=== PATIENT | male | born 1940 | race Caucasian/White ===

== ENCOUNTER 2020-03-21 11:26 | Emergency (ER) | payer MEDICARE, OTHER ==
[2020-03-21] MEDS ORDERED: BUFFERED LIDOCAINE 10 ML SYRINGE SUBQ STA (12:39)
--- NOTE | 2020-03-21 13:05 | ED Physician Documentation ---
PD HPI UPPER EXT INJURY - Stated complaint Stated Complaint: LT HAND LAC - Chief complaint Chief Complaint: Laceration - History obtained from History obtained from: Patient - History of Present Illness Location: Left, Hand Type of injury: Laceration Where injury occurred: Home Timing - onset: How many hours ago (2) - Additonal information Additional information: 79-year-old right-handed male presents to the emergency department with an approximately 1-1/2 cm laceration at the base of his left thumb just above the thenar eminence. This occurred at home when he was using a crate bar. 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 Bleeding is controlled with pressure. No deformity. He reports tetanus is being up-to-date. Review of Systems Constitutional: denies: Fever Ears: denies: Loss of hearing Throat: denies: Dental pain / toothache, Oral lesions / sores Cardiac: denies: Chest pain / pressure, Palpitations Respiratory: denies: Dyspnea GI: denies: Abdominal Pain, Abdominal Swelling : denies: Dysuria Skin: reports: Laceration (s) (1.5 cm base of left thumb palmar side above thenar eminence). denies: Rash, Lesions PD PAST MEDICAL HISTORY - Past Medical History Past Medical History: Yes Cardiovascular: Hypertension - Past Surgical History Past Surgical History: Yes Ortho: Knee replacement, Rotator cuff repair - Allergies Allergies/Adverse Reactions: Allergies Allergy/AdvReac Type Severity Reaction Status Date / Time No Known Drug Allergies Allergy Verified 03/21/20 11:53 - Social History Does the pt smoke?: No Smoking Status: Never smoker Does the pt drink ETOH?: No Does the pt have substance abuse?: No - Immunizations Immunizations are current?: Yes - POLST Patient has POLST: No PD ED PE NORMAL - General General: Alert and oriented X 3, No acute distress - Derm Derm: Other (1.5 cm laceration palmar side left hand base of thumb above thenar eminence. Patient able to make a full grasp with left hand abduct and adduct thumb normally. No deformity) Results - Vitals Vitals: Vital Signs - 24 hr 03/21/20 11:50 Temperature 36.0 C L Heart Rate 65 Respiratory 18 Rate Blood Pressure 131/55 H O2 Saturation 99 Oxygen O2 Source Room air Procedures - Laceration (location) left hand Length in cm: 2 Wound type: Linear Neurovascular status: Sensory intact, Motor intact, Vascular intact Tendon involvement: Tendon intact Anesthesia: Lidocaine 1% Wound Preparation: Chlorhexadine, Irrigated copiously NS Skin layer closure: Size #-0 - enter number (4), Sutures - enter # (5) Other: Patient tolerated well, No complications, Neurovascular intact, Dressing applied, Tetanus UTD Complexity: Simple PD MEDICAL DECISION MAKING - ED course Complexity details: reviewed results, d/w patient, d/w family ED course: 79-year-old male presents to the emergency department for evaluation of a left hand laceration that occurred at home when using a crowbar. The laceration was closed easily with 5 sutures. No concern for foreign body tendon involvement or hand fracture. Patient advised that sutures can be removed in 7 to 10 days. Routine wound care and return for concerns of infection discussed. Patient's tetanus is up-to-date Departure - Departure Disposition: 01 Home, Self Care Clinical Impression: Laceration of hand Qualifiers: Encounter type: initial encounter Foreign body presence: without foreign body Laterality: left Qualified Code(s): S61.412A - Laceration without foreign body of left hand, initial encounter Condition: Stable Instructions: ED Laceration Hand Follow-Up: Seymour Goldberg MD [Primary Care Provider] - Within 1 week Comments: The laceration of your hand should heal well. Sutures can be removed in 7 to 10 days. 24 hours you may remove your dressing in January. Apply any antibiotic ointment and a simple bandage. It is important that you minimize movement of the left hand and thumb to allow the tissue time to heal. Return here for fevers, redness swelling milky drainage or any concerns of infection.
[2020-03-21 13:16] VITALS: BP 137/66
== END 2020-03-21 13:17 | disposition home or self-care (01) ==
LOC: ED 11:26
DX: S61.412A Laceration without foreign body of left hand, initial encounter (principal); W27.8XXA Contact with other nonpowered hand tool, initial encounter; Y92.009 Unspecified place in unspecified non-institutional (private) residence as the place of occurrence of the external cause
CPT/HCPCS: 12001; 99282; 99283

== ENCOUNTER 2022-02-06 09:01 | Outpatient (CLI) | payer MEDICARE, OTHER ==
--- NOTE | 2022-02-06 09:52 | CT Report ---
PROCEDURE: Sinuses INDICATIONS: RECURRENT SINUSITIS TECHNIQUE: Noncontrast 3.0 mm axial images acquired from the frontal sinuses to the mid-sella, with coronal and sagittal reformats. For radiation dose reduction, the following was used: automated exposure control , adjustment of mA and/or kV according to patient size. COMPARISON: None. FINDINGS: Image quality: Excellent. Maxillary Sinuses: No bony remodeling or destruction. Mild mucosal thickening of the right maxillary sinus anteriorly measuring up to 3 mm. Ethmoid Air Cells: No bony remodeling or destruction. Sinuses are clear. Sphenoid Sinuses: No bony remodeling or destruction. Sinuses are clear. Frontal Sinuses: No bony remodeling or destruction. Sinuses are clear. Ostiomeatal Complexes: Ostiomeatal complexes are patent. Small Hilario cell on the left. Miscellaneous: Visualized intra-orbital contents are normal. No dexter bullosa. No nasal septal de viation. IMPRESSION: Mild mucosal thickening of the right anterior maxillary sinus, otherwise no significant s inusitis. Reviewed by: Cornelio Faith on 02/06/2022 9:50 AM PDT Approved by: Cornelio Faith on 02/06/2022 9:50 AM PDT Station ID: [id number]
== END 2022-02-06 09:02 | disposition home or self-care (01) ==
LOC: DI 09:01
PROVIDERS: ATTEND Family Medicine
DX: J01.91 Acute recurrent sinusitis, unspecified (principal)

== ENCOUNTER 2022-02-14 08:00 | Outpatient (CLI) | payer MEDICARE, OTHER ==
[2022-02-14 15:27] LABS: BILIRUBIN,URINE NEGATIVE (NEGATIVE); GLUCOSE, URINE (UA) NEGATIVE (NEGATIVE); KETONES,URINE (UA) NEGATIVE (NEGATIVE); LEUKOCYTE ESTERASE, URINE NEGATIVE (NEGATIVE); NITRITE,URINE NEGATIVE (NEGATIVE); OCCULT BLOOD,URINE NEGATIVE (NEGATIVE); PROTEIN,URINE NEGATIVE (NEGATIVE); UROBILINOGEN,URINE 0.2 (NORMAL) E.U./dL (NORMAL)
[2022-02-14 15:41] LABS: CLARITY,URINE CLEAR (CLEAR)
[2022-02-14 16:54] LABS: BACTERIA,URINE Few /HPF (None Seen); RBC,URINE None Seen /HPF (0-5); SQUAMOUS EPITHELIAL CELL,UR RARE Squamous (<= Few); WBC,URINE 0-3 /HPF (0-3)
== END 2022-02-14 23:59 | disposition home or self-care (01) ==
LOC: LAB 08:00
PROVIDERS: ATTEND Emergency Medicine
DX: R53.83 Other fatigue (principal)
CPT/HCPCS: 81001; 87086

== ENCOUNTER 2022-02-14 13:02 | Outpatient (CLI) | payer MEDICARE, OTHER ==
[2022-02-14 19:58] LABS: BASOPHILS % (AUTO) 0.2 %; EOSINOPHILS # (AUTO) 0.2 10^3/uL (0.0-0.7); EOSINOPHILS % (AUTO) 1.7 %; HCT - HEMATOCRIT 36.2 % (42.0-52.0); HGB - HEMOGLOBIN 12.2 g/dL (14.0-18.0); LYMPHOCYTES # (AUTO) 1.7 10^3/uL (1.5-3.5); LYMPHOCYTES % (AUTO) 18.8 %; MEAN CORPUSCULAR HEMOGLOBIN 31.2 pg (27.0-31.0); MEAN CORPUSCULAR HGB CONC 33.7 g/dL (32.0-36.0); MEAN CORPUSCULAR VOLUME 92.6 fL (80.0-94.0); MEAN PLATELET VOLUME 11.9 fL (7.4-11.4); MONOCYTES % (AUTO) 10.4 %; NEUTROPHILS # (AUTO) 6.3 10^3/uL (1.5-6.6); NEUTROPHILS % (AUTO) 68.2 %; PLT - PLATELET COUNT 133 10^3/uL (130-450); RED BLOOD COUNT 3.91 10^6/uL (4.70-6.10); RED CELL DISTRIBUTION WIDTH 15.3 % (12.0-15.0); WHITE BLOOD COUNT 9.2 x10^3/uL (4.8-10.8)
[2022-02-14 20:04] LABS: ALBUMIN/GLOBULIN RATIO 1.4 (1.0-2.2); BILIRUBIN,TOTAL 0.9 mg/dL (0.2-1.0); CALCIUM 8.9 mg/dL (8.5-10.3); CREATININE 0.9 mg/dL (0.6-1.2); POTASSIUM 4.5 mmol/L (3.5-5.0); TOTAL PROTEIN 6.8 g/dL (6.7-8.2)
[2022-02-14 20:35] LABS: THYROID STIMULATING HORMONE 4.48 uIU/mL (0.34-5.60)
== END 2022-02-14 13:03 | disposition home or self-care (01) ==
LOC: LAB.S 13:02
PROVIDERS: ATTEND Emergency Medicine
DX: R53.83 Other fatigue (principal); Z12.5 Encounter for screening for malignant neoplasm of prostate
CPT/HCPCS: 36415; 80053; 84443; 85025; G0103; 84153

== ENCOUNTER 2023-04-03 14:13 | Outpatient (CLI) | payer MEDICARE, OTHER | END 2023-04-03 14:14 | disposition critical access hospital (66) | LOC: EMS 14:13 | DX: R06.02 Shortness of breath (principal) | CPT/HCPCS: A0425; A0427 ==

== ENCOUNTER 2023-04-03 14:55 | Inpatient (IN) | payer MEDICARE, OTHER ==
--- NOTE | 2023-04-03 15:05 | ED Physician Documentation ---
PD HPI DYSPNEA - Stated complaint Stated Complaint: SOA - History obtained from History obtained from: Patient - Additional information Additional information: 82-year-old gentleman with "pulmonary calcifications" for which he sees a pump house technician at [facility]. Over the last few weeks he is slowly been getting worse with breathing with a productive cough with yellow-green sputum and worsening shortness of breath with increased oxygen requirement with his oxygen going from 4 up to 5, up to 6 L. He has been seen a couple times the [place] and he has had 2 rounds of Augmentin and prednisone, the first starting on the eighth of this month and the second starting 4 days ago. Despite this he continues to worsen. He denies fevers. No pedal edema or calf pain. No chest pain or heart problems. EMS notes his pulse oximetry while walking at home was 75% on his 6 L. From EMS prior to arrival he received a DuoNeb which did not do anything to help him he thinks, and 125 mg of IV Solu-Medrol. PD PAST MEDICAL HISTORY - Past Medical History Cardiovascular: Hypertension - Past Surgical History Past Surgical History: Yes Ortho: Knee replacement, Rotator cuff repair - Allergies Allergies/Adverse Reactions: Allergies Allergy/AdvReac Type Severity Reaction Status Date / Time No Known Drug Allergies Allergy Verified 04/03/23 15:09 - Social History Does the pt smoke?: No Smoking Status: Never smoker Does the pt drink ETOH?: No Does the pt have substance abuse?: No - Immunizations Immunizations are current?: Yes - POLST Patient has POLST: No PD ED PE NORMAL - Vitals Vital signs reviewed: Yes - General General: Alert and oriented X 3, Other (Modestly labored breathing but speaking in full short sentences) - Neck Neck: Supple, no meningeal sign, No bony TTP - Cardiac Cardiac: RRR, No murmur - Respiratory Respiratory: Other (Labored breathing with actually pretty good air motion, mild crackles throughout and mild expiratory wheezes.) - Abdomen Abdomen: Non tender - Extremities Extremities: No edema, No calf tenderness / cord - Neuro Neuro: Alert and oriented X 3, Normal speech Results - Vitals Vitals: Vital Signs - 24 hr 04/03/23 04/03/23 04/03/23 14:56 16:33 17:00 Temperature 37.6 C 36.7 C Heart Rate 95 94 80 Respiratory 27 H 20 20 Rate Blood Pressure 131/81 H 109/53 L 107/82 H O2 Saturation 89 L 90 L 92 If not protocol 6 6 : Oxygen Flow, liters/minute 04/03/23 04/03/23 18:00 18:30 Temperature 36.4 C L Heart Rate 79 88 Respiratory 20 20 Rate Blood Pressure 127/82 H 134/91 H O2 Saturation 94 92 If not protocol 6 6 : Oxygen Flow, liters/minute Oxygen O2 Source Nasal cannula Oxygen Flow Rate 6 - EKG (time done) 1514 EKG releavant findings:: EKG personally interpreted by author of this note. Relevant findings are: Rate: Rate (enter#) (88) Rhythm: NSR [place]: Normal Intervals: Normal AR QRS: Normal Ischemia: Non specific changes. No: ST elevation c/w ischemia, ST depression, T wave inversion Computer interpretation: Agree with computer - Labs Labs: Laboratory Tests 04/03/23 04/03/23 04/03/23 15:18 15:22 15:22 WBC 11.6 H RBC 3.76 L Hgb 11.7 L Hct 33.4 L MCV 88.8 MCH 31.1 H MCHC 35.0 RDW 16.0 H Plt Count 104 L MPV 11.7 H Neut # (Auto) 9.6 H Lymph # (Auto) 1.0 L Conway # (Auto) 0.9 Eos # (Auto) 0.0 Baso # (Auto) 0.0 Absolute Nucleated RBC 0.00 Nucleated RBC % 0.0 VBG pH VBG pCO2 VBG pO2 VBG HCO3 VBG Total CO2 VBG O2 Saturation VBG Base Excess Sodium 127 L Potassium 4.0 Chloride 96 L Carbon Dioxide 24 Anion Gap 7.0 BUN 16 Creatinine 1.0 Estimated GFR (MDRD) 72 L Glucose 132 H Lactic Acid Calcium 8.9 Phosphorus 3.8 Magnesium 1.6 L Total Bilirubin 1.1 H AST 21 ALT 13 Alkaline Phosphatase 58 Total Protein 6.8 Albumin 3.8 Globulin 3.0 Albumin/Globulin Ratio 1.3 Nasal Adenovirus (PCR) NOT DETECTED Nasal B. parapertussis DNA (PCR) NOT DETECTED Nasal Coronavir 229E PCR NOT DETECTED Nasal Coronavir HKU1 PCR NOT DETECTED Nasal Coronavir NL63 PCR NOT DETECTED Nasal Coronavir OC43 PCR NOT DETECTED Nasal Enterovir/Rhinovir PCR NOT DETECTED Nasal Influenza B PCR NOT DETECTED Nasal Influenza A PCR NOT DETECTED Nasal Parainfluen 1 PCR NOT DETECTED Nasal Parainfluen 2 PCR NOT DETECTED Nasal Parainfluen 3 PCR NOT DETECTED Nasal Parainfluen 4 PCR NOT DETECTED Nasal RSV (PCR) NOT DETECTED Nasal B.pertussis DNA PCR NOT DETECTED Nasal C.pneumoniae (PCR) NOT DETECTED Shiv Human Metapneumo PCR NOT DETECTED Nasal M.pneumoniae (PCR) NOT DETECTED Nasal SARS-CoV-2 (PCR) NOT DETECTED 04/03/23 04/03/23 15:22 15:22 WBC RBC Hgb Hct MCV MCH MCHC RDW Plt Count MPV Neut # (Auto) Lymph # (Auto) Conway # (Auto) Eos # (Auto) Baso # (Auto) Absolute Nucleated RBC Nucleated RBC % VBG pH 7.449 H VBG pCO2 32.1 L VBG pO2 68.9 H VBG HCO3 21.8 L VBG Total CO2 22.7 L VBG O2 Saturation 92.8 H VBG Base Excess -1.5 Sodium Potassium Chloride Carbon Dioxide Anion Gap BUN Creatinine Estimated GFR (MDRD) Glucose Lactic Acid 1.2 Calcium Phosphorus Magnesium Total Bilirubin AST ALT Alkaline Phosphatase Total Protein Albumin Globulin Albumin/Globulin Ratio Nasal Adenovirus (PCR) Nasal B. parapertussis DNA (PCR) Nasal Coronavir 229E PCR Nasal Coronavir HKU1 PCR Nasal Coronavir NL63 PCR Nasal Coronavir OC43 PCR Nasal Enterovir/Rhinovir PCR Nasal Influenza B PCR Nasal Influenza A PCR Nasal Parainfluen 1 PCR Nasal Parainfluen 2 PCR Nasal Parainfluen 3 PCR Nasal Parainfluen 4 PCR Nasal RSV (PCR) Nasal B.pertussis DNA PCR Nasal C.pneumoniae (PCR) Shiv Human Metapneumo PCR Nasal M.pneumoniae (PCR) Nasal SARS-CoV-2 (PCR) PD Medical Decision Making - ED course ED course: 82-year-old gentleman with chronic lung disease presents with acute on chronic respiratory failure. Has a white count of 11, slight hyperventilation on venous gas, modest hyponatremia on metabolic panel, chronic, respiratory panel negative. 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 Placed on ceftriaxone and azithromycin and already had steroids prior to arrival. Given his worsening will need admission for further evaluation and treatment. Decision to admit made at 6:26 PM, will have to hold for hospitalist shift change at 7. Spoke with Dr Wolff at 1911, who declines admit, feels like he should go somewhere with pulmonology and bronch capability, call to [facility] where his pulm is at 1911. Spoke with Dr Krishna Fletcher, pulmonary at [facility] a 8:39. He viewed the CT images and feels the fibrosis is similar. Does feel there is likely infectious groundglass opacity in R lung. Agreed with admit here w 1g solumedrol qd x 3 days. No role for inpatient bronchoscopy as he is not immunocompromised. Does recommend sputum cx and agrees with tx for CAP. Subsequently spoke with Dr. Wolff again and he will admit the patient. Departure - Departure Disposition: [facility] DC/[place] Clinical Impression: Respiratory failure Discharge Date/Time: 04/03/23 21:49
[2023-04-03 15:38] LABS: VBG HCO3 21.8 mmol/L (23-28); VBG PCO2 32.1 mmHg (41-51); VBG PH 7.449 (7.31-7.41); VBG PO2 68.9 mmHg (25-47); VBG TOTAL CO2 22.7 mmol/L (24-29)
[2023-04-03 15:39] LABS: VBG BASE EXCESS -1.5 mmol/L (-2 - +2); VBG OXYGEN SATURATION 92.8 % (60-80)
[2023-04-03 15:42] LABS: BASOPHILS % (AUTO) 0.3 %; EOSINOPHILS % (AUTO) 0.3 %; HCT - HEMATOCRIT 33.4 % (42.0-52.0); HGB - HEMOGLOBIN 11.7 g/dL (14.0-18.0); LYMPHOCYTES % (AUTO) 8.3 %; MEAN CORPUSCULAR HEMOGLOBIN 31.1 pg (27.0-31.0); MEAN CORPUSCULAR VOLUME 88.8 fL (80.0-94.0); MEAN PLATELET VOLUME 11.7 fL (7.4-11.4); MONOCYTES # (AUTO) 0.9 10^3/uL (0.0-1.0); MONOCYTES % (AUTO) 7.6 %; NEUTROPHILS # (AUTO) 9.6 10^3/uL (1.5-6.6); NEUTROPHILS % (AUTO) 82.6 %; PLT - PLATELET COUNT 104 10^3/uL (130-450); RED BLOOD COUNT 3.76 10^6/uL (4.70-6.10); WHITE BLOOD COUNT 11.6 x10^3/uL (4.8-10.8)
[2023-04-03 15:52] LABS: ALBUMIN 3.8 g/dL (3.2-5.5); ALBUMIN/GLOBULIN RATIO 1.3 (1.0-2.2); BILIRUBIN,TOTAL 1.1 mg/dL (0.2-1.0); CALCIUM 8.9 mg/dL (8.5-10.3); MAGNESIUM 1.6 mg/dL (1.7-2.3); PHOSPHORUS 3.8 mg/dL (2.5-5.0); TOTAL PROTEIN 6.8 g/dL (6.4-8.9)
[2023-04-03 16:30] LABS: B. PARAPERTUSSIS- RESP PCR PAN NOT DETECTED; B. PERTUSSIS- RESP PCR PANEL NOT DETECTED; C. PNEUMONIAE- RESP PCR PANEL NOT DETECTED; CORONAVIRUS 229E-RESP PCR NOT DETECTED; CORONAVIRUS HKU1-RESP PCR NOT DETECTED; CORONAVIRUS NL63-RESP PCR NOT DETECTED; CORONAVIRUS OC43-RESP PCR NOT DETECTED; HUMAN METAPNEUMOVIRUS NOT DETECTED; INFLUENZA A- RESP PCR PANEL NOT DETECTED; INFLUENZA B - RESP PCR PANEL NOT DETECTED; M. PNEUMONIAE- RESP PCR PANEL NOT DETECTED; PARAINFLUENZA VIRUS 1 NOT DETECTED; PARAINFLUENZA VIRUS 2 NOT DETECTED; PARAINFLUENZA VIRUS 3 NOT DETECTED; PARAINFLUENZA VIRUS 4 NOT DETECTED; RHINOVIRUS/ENTEROVIRUS NOT DETECTED; RSV- RESP PCR PANEL NOT DETECTED; SARS-CoV-2 -RESP PCR PANEL NOT DETECTED
--- NOTE | 2023-04-03 18:15 | CT Report ---
PROCEDURE: ANGIO CHEST W/WO INDICATIONS: dyspnea, pe protocol CONTRAST: 100ml omni 300 TECHNIQUE: After the administration of intravenous contrast, 2 mm axial images were acquired from the pulmonary apices to the posterior costophrenic angles during the arterial phase. In addition, 1 mm lung kernel and 5 mm soft tissue kernel reconstructions were performed. 3-dimensional coronal oblique maximum int ensity projection (MIP) reformats, 8 mm axial MIP, and 5 mm coronal and sagittal MPR reformats were t hen performed through the thorax. For radiation dose reduction, the following was used: automated exp osure control, adjustment of mA and/or kV according to patient size. COMPARISON: None FINDINGS: Image quality: Good Lungs and pleura:Mosaic attenuation. Honeycombing most confluent at the bases. Possible additional gr oundglass opacities. Traction bronchiectasis. No pleural effusions. Mediastinum, heart, and esophagus: No pulmonary embolism. Patulous esophagus, nonspecific. There are valvular and annular calcifications around the heart. Coronary calcifications also present. Prominent medial sagittal hilar lymph nodes may be reactive in this clinical setting, indeterminate. Mildly dilated pulmonary artery suggestive of high pulmonary pressures. Chest wall and thyroid: Unremarkable. Upper abdomen: No gross abnormality on these arterial phase images. Bones: Degenerative changes are present, no acute or suspicious finding. IMPRESSION: No acute pulmonary embolism. 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 There is additional mosaic attenuation suggesting c hronic small airways disease/chronic bronchiolitis. There may also be infectious/inflammatory groundg lass opacities. Consider future follow-up with high-resolution chest CT and PFTs. Reviewed by: Tien Wilson MD on 04/03/2023 6:13 PM PDT Approved by: Tien Wilson MD on 04/03/2023 6:13 PM PDT Station ID: [id number]
[2023-04-03] MEDS ORDERED: cefTRIAXone 1 GM VIAL IVP STA (18:26)
[2023-04-03] MEDS ORDERED: AZITHROMYCIN INJ 500 MG in SODIUM CHLORIDE 0.9% 250 ML IV STA (18:26)
[2023-04-03] MEDS ORDERED: iohexoL-300 100 ML VIAL IVP ONE (19:06)
[2023-04-03] MEDS ORDERED: methylPREDNISolone SUCCINATE 1,000 MG in SODIUM CHLORIDE 0.9% 250 ML IV STA (20:42)
[2023-04-03] MEDS ORDERED: ONDANSETRON 4 MG/2 ML VIAL IVP PRN (20:50)
[2023-04-03] MEDS ORDERED: SODIUM CHLORIDE FLUSH 0.9% 10 ML SYRINGE IVP PRN (20:50)
[2023-04-03] MEDS ORDERED: HYDROcod/ACETAM 5/325 MG TABLET PO PRN (20:50)
[2023-04-03] MEDS ORDERED: ACETAMINOPHEN 325 MG TABLET PO PRN (20:50)
[2023-04-03] MEDS ORDERED: MAGNESIUM SULFATE 1 GM/2 ML VIAL IVP STA (20:56)
--- NOTE | 2023-04-03 21:06 | HISTORY & PHYSICAL EXAMINATION ---
Chief Complaint - Chief Complaint Chief Complaint: SOB History of Present Illness - Admitted From Admitted From:: Home - History Obtained From Records Reviewed: Yes History obtained from: Patient and ER team Exam Limitations: None - History of Present Illness HPI Comment/Other: 82-year-old gentleman with "pulmonary calcifications" for which he sees a effervescent salts compounder at [facility]. Over the last few weeks he is slowly been getting worse with breathing with a productive cough with yellow-green s putum and worsening shortness of breath with increased oxygen requirement with his oxygen going from 4 up to 5, up to 6 L. He has been seen a couple times the [place] and he has had 2 rounds of Augmentin and prednisone, the first starting on the eighth of this month and the second starting 4 days ago. Despite this he continues to worsen. He denies fevers. No pedal edema or calf pain. No chest pain or heart problems. EMS notes his pulse oximetry while walking at home was 75% on his 6 L. From EMS prior to arrival he received a DuoNeb which did not do anything to help him he thinks, and 125 mg of IV Solu-Medrol. Pateint discussed with Dr Gomez, patient may need high dose steroids and may need bronch so asked him to speak with his primary pulmonary, who reviewed images and felt patient is ok to be admitted at [facility] and recommneded abx and high dose siolumedrol x 3 days Patient is retired lives with is a full code Used to work in construction History - Past Medical History Cardiovascular: reports: Hypertension MRSA Hx?: No - Past Surgical History Ortho: reports: Knee replacement, Rotator cuff repair - POLST Patient has POLST: No Meds/Allgy - Allergies Allergies/Adverse Reactions: Allergies Allergy/AdvReac Type Severity Reaction Status Date / Time No Known Drug Allergies Allergy Verified 04/03/23 15:09 Review of Systems - Respiratory Respiratory: reports: Cough, SOB with exertion Prior Level of Functionality: Oxygen dependnet at home Exam - Vital Signs Vital Signs: Vital Signs x48h Temp Pulse Resp BP Pulse Ox O2 Flow Rate 04/03/23 18:30 88 20 134/91 H 92 6 04/03/23 18:00 36.4 C L 79 20 127/82 H 94 6 04/03/23 17:00 80 20 107/82 H 92 6 04/03/23 16:33 36.7 C 94 20 109/53 L 90 L 6 04/03/23 14:56 37.6 C 95 27 H 131/81 H 89 L - Physical Exam General Appearance: positive: Mild distress Eyes Bilateral: positive: Normal inspection Neck: positive: Thyroid nml, No JVD Respiratory: positive: Rales (Mild respiratory ditress), Rhonchi Cardiovascular: positive: Regular rate & rhythm Abdomen: positive: No organomegaly, Nml bowel sounds Back: positive: Nml inspection Skin: positive: Color nml, No rash Extremities: positive: Non-tender, Full ROM Neurologic/Psychiatric: positive: Oriented x3, CN's nml (2-12) Sepsis Event Note (H) - Evaluation Current Stage of Sepsis: Ruled out Conclusion/Plan - Problem List (1) COPD (chronic obstructive pulmonary disease) with acute bronchitis Conclusion/Plan: Admit to med surg Magnesium to be replaced Duonebs Send sputum cultures and sensitivity Empiric abx Supplemental Oxygen RT to see patient High dose steroids x 3 days (2) ILD (interstitial lung disease) Conclusion/Plan: High dose steroids DVT prophylaxis Will stayf for 3-5 days Patient informed that I am based in [place] and this is telemedicine visit and he gave his approval for the vist - Lab Results Fish Bones: 04/03/23 15:22 04/03/23 15:22 - Diagnostic Imaging Results Diagnostic Imaging Results: positive: Prelim report reviewed - EKG Results EKG Interpreted Independently: No
[2023-04-03] MEDS ORDERED: MAGNESIUM SULFATE 1 GM/2 ML VIAL ONE (22:58)
[2023-04-03] MEDS ORDERED: SODIUM CHLORIDE 0.9% IV ONE (23:00)
[2023-04-03] MEDS ORDERED: MAGNESIUM SULFATE IV ONE (23:00)
[2023-04-03] MEDS: SODIUM CHLORIDE 0.9% 1,000 ML IV SCH (23:19)
[2023-04-03] MEDS: SODIUM CHLORIDE FLUSH 0.9% 10 ML SYRINGE IVP SCH (23:30)
[2023-04-03] MEDS: methylPREDNISolone SUCCINATE 1,000 MG in SODIUM CHLORIDE 0.9% 250 ML IV SCH (23:31)
[2023-04-04] MEDS ORDERED: cefTRIAXone 1 GM in SODIUM CHLORIDE 0.9% MINIBAG 100 ML IV ONE (06:00)
[2023-04-04] MEDS: SODIUM CHLORIDE FLUSH 0.9% 10 ML SYRINGE IVP SCH ×3 (08:47→23:15)
[2023-04-04] MEDS: methylPREDNISolone SUCCINATE 1,000 MG in SODIUM CHLORIDE 0.9% 250 ML IV SCH (09:13)
--- NOTE | 2023-04-04 11:19 | PHARMACY PROGRESS NOTE ---
- Best Possible Medication History Admit Date and Time: 04/03/232050 Processed by: Pharmacy Medication History completed: Yes Patient Interview: Completed Secondary Source(s): Written medication list, Prescription bottles, Spouse/Significant other As the person ultimately responsible for medication therapy, providers are able to order a medication from an existing home medication list in [facility] via the "Reconcile Routine" prior to Confirmation of that medication by desktop support consultant. Such practice is discouraged except when the physician, in their clinical judgment, deems that a medical need exists for a medication without regard to previous use. Conducted patient interview with assistance from spouse.
[2023-04-04] MEDS ORDERED: BENZONATATE 100 MG CAPSULE PO PRN (12:12)
[2023-04-04] MEDS: SODIUM CHLORIDE 0.9% 1,000 ML IV SCH ×2 (12:15→20:54)
[2023-04-04] MEDS: guaiFENesin/DEXTROMETHORPHAN 10 ML UDC PO PRN ×2 (12:25→20:58)
--- NOTE | 2023-04-04 12:27 | PROVIDER PROGRESS NOTE ---
Assessment/Plan - Problem List (1) Acute on chronic respiratory failure Qualifiers: Respiratory failure complication: hypoxia Qualified Code(s): J96.21 - Acute and chronic respiratory failure with hypoxia Assessment/Plan: * Patient with known history of interstitial lung disease followed by [facility] pulmonology, chronically on oxygen at home with baseline 4 L * Admitted with progressive shortness of breath not responding to 2 rounds of oral Augmentin in the last 10 days * Presented to the ED with no clear evidence of infection, COVID-negative, no clear consolidation on chest x-ray suggestive of community-acquired pneumonia * Admitted on high-dose IV steroids at the recommendation of his negative cleaner who was contacted by ED attending * Has made some improvements clinically but fluctuating levels of oxygen requirements as low as 6 L and as high as 7 L by oxy mask this morning * Continue to provide supportive care with IV Solu-Medrol and oxygen to wean to baseline as able * Given history of interstitial lung disease will cover atypicals with 3 days of azithromycin * Given lack of focal consolidation, leukocytosis on admission, or fevers, will defer further antibiotics for now * Pending clinical course, broaden antibiotics as needed (2) ILD (interstitial lung disease) Assessment/Plan: Treatment as above (3) HTN (hypertension) Assessment/Plan: BP stable Monitor (4) GERD (gastroesophageal reflux disease) Assessment/Plan: Protonix p.o. - Current Meds Current Meds: Current Medications Generic Name Dose Route Start Last Admin Trade Name Freq PRN Reason Stop Dose Admin Sodium Chloride 1,000 mls @ 100 mls/hr 04/03/23 21:00 04/04/23 12:15 Normal Saline 0.9% IV 100 mls/hr .Q10H KNEYA Administration Methylprednisolone Sodium 250 mls @ 250 mls/hr 04/03/23 21:00 04/04/23 10:14 Succinate 1,000 mg/ Sodium IV 04/06/23 06:00 Infused Chloride DAILY KENYA Infusion Sodium Chloride 10 ml 04/04/23 01:00 04/04/23 08:47 Sodium Chloride Flush 0.9% 10 Ml Syringe IVP Not Given 0100,0900,1700 KENYA - Lab Result Lab results reviewed: Yes Fish Bone Diagrams: 04/03/23 15:22 04/03/23 15:22 - Additional Planning My Orders: My Active Orders 04/04/23 12:12 Benzonatate [Tessalon] 100 mg PO TID PRN guaiFENesin/DEXTROMETHORPHAN [Robitussin Dm] 10 ml PO Q6HR PRN 04/04/23 12:24 Benzonatate [Tessalon] 200 mg PO TID PRN 04/05/23 05:00 BMP - BASIC METABOLIC PANEL [CHEM] DAILYLAB CBC W/O DIFF (HEMOGRAM) [HEME] DAILYLAB 04/05/23 08:00 Magnesium Oxide [Mag Ox] 400 mg PO DAILYWM 04/06/23 05:00 BMP - BASIC METABOLIC PANEL [CHEM] DAILYLAB CBC W/O DIFF (HEMOGRAM) [HEME] DAILYLAB 04/07/23 05:00 BMP - BASIC METABOLIC PANEL [CHEM] DAILYLAB CBC W/O DIFF (HEMOGRAM) [HEME] DAILYLAB Subjective - Subjective Patient Reports: Feeling Better Objective Vital Signs: Vital Signs - 24 hr 04/03/23 04/03/23 04/03/23 14:56 16:33 17:00 Temperature 37.6 C 36.7 C Heart Rate 95 94 80 Heart Rate [ Brachial] Respiratory 27 H 20 20 Rate Blood Pressure 131/81 H 109/53 L 107/82 H Blood Pressure [Left Brachial artery] Blood Pressure [Right Brachial artery] O2 Saturation 89 L 90 L 92 If not protocol 6 6 : Oxygen Flow, liters/minute 04/03/23 04/03/23 04/03/23 18:00 18:30 21:00 Temperature 36.4 C L Heart Rate 79 88 79 Heart Rate [ Brachial] Respiratory 20 20 20 Rate Blood Pressure 127/82 H 134/91 H 123/89 H Blood Pressure [Left Brachial artery] Blood Pressure [Right Brachial artery] O2 Saturation 94 92 94 If not protocol 6 6 6 : Oxygen Flow, liters/minute 04/03/23 04/03/23 04/03/23 21:47 21:56 23:28 Temperature 36.4 C L 36.5 C Heart Rate Heart Rate [ 79 79 Brachial] Respiratory 32 H 22 Rate Blood Pressure Blood Pressure 136/76 H [Left Brachial artery] Blood Pressure 118/75 [Right Brachial artery] O2 Saturation 98 91 L If not protocol 6 6 6 : Oxygen Flow, liters/minute 04/03/23 04/04/23 04/04/23 23:55 08:00 10:29 Temperature 36.6 C Heart Rate Heart Rate [ 89 Brachial] Respiratory 24 Rate Blood Pressure Blood Pressure 117/83 H [Left Brachial artery] Blood Pressure [Right Brachial artery] O2 Saturation 83 L If not protocol 6 6 9 : Oxygen Flow, liters/minute Oxygen O2 Source Nasal cannula Oxygen Flow Rate 6 I&O (Last 24 Hrs): Intake and Output Totals x24h 04/02/23 04/03/23 04/04/23 23:59 23:59 23:59 Intake Total 250 2056 Output Total 325 Balance 250 1731 General: Alert, Oriented x3, Cooperative HEENT: Atraumatic, EOMI Neuro: Alert, Disoriented Cardiovascular: Regular rate, Normal S1, Normal S2 Respiratory: Rales, Rhonchi Abdomen: Normal bowel sounds Genitourinary: Normal Inspection Extremities: No clubbing, No cyanosis, No edema Skin: No rashes - Results Results: Laboratory Results WBC 11.6 x10^3/uL (4.8-10.8) H 04/03/23 15:22 RBC 3.76 10^6/uL (4.70-6.10) L 04/03/23 15:22 Hgb 11.7 g/dL (14.0-18.0) L 04/03/23 15:22 Hct 33.4 % (42.0-52.0) L 04/03/23 15:22 MCV 88.8 fL (80.0-94.0) 04/03/23 15:22 MCH 31.1 pg (27.0-31.0) H 04/03/23 15:22 MCHC 35.0 g/dL (32.0-36.0) 04/03/23 15:22 RDW 16.0 % (12.0-15.0) H 04/03/23 15:22 Plt Count 104 10^3/uL (130-450) L 04/03/23 15:22 MPV 11.7 fL (7.4-11.4) H 04/03/23 15:22 Neut # (Auto) 9.6 10^3/uL (1.5-6.6) H 04/03/23 15:22 Lymph # (Auto) 1.0 10^3/uL (1.5-3.5) L 04/03/23 15:22 [place] # (Auto) 0.9 10^3/uL (0.0-1.0) 04/03/23 15:22 Eos # (Auto) 0.0 10^3/uL (0.0-0.7) 04/03/23 15:22 Baso # (Auto) 0.0 10^3/uL (0.0-0.1) 04/03/23 15:22 Absolute Nucleated RBC 0.00 x10^3/uL 04/03/23 15:22 Nucleated RBC % 0.0 /100WBC 04/03/23 15:22 VBG pH 7.449 (7.31-7.41) H 04/03/23 15:22 VBG pCO2 32.1 mmHg (41-51) L 04/03/23 15:22 VBG pO2 68.9 mmHg (25-47) H 04/03/23 15:22 VBG HCO3 21.8 mmol/L (23-28) L 04/03/23 15:22 VBG Total CO2 22.7 mmol/L (24-29) L 04/03/23 15:22 VBG O2 Saturation 92.8 % (60-80) H 04/03/23 15:22 VBG Base Excess -1.5 mmol/L (-2 - +2) 04/03/23 15:22 Sodium 127 mmol/L (135-145) L 04/03/23 15:22 Potassium 4.0 mmol/L (3.5-4.5) 04/03/23 15:22 Chloride 96 mmol/L (101-111) L 04/03/23 15:22 Carbon Dioxide 24 mmol/L (21-32) 04/03/23 15:22 Anion Gap 7.0 (6-13) 04/03/23 15:22 BUN 16 mg/dL (6-20) 04/03/23 15:22 Creatinine 1.0 mg/dL (0.6-1.3) 04/03/23 15:22 Estimated GFR (MDRD) 72 (>89) L 04/03/23 15:22 Glucose 132 mg/dL (74-104) H 04/03/23 15:22 Lactic Acid 1.2 mmol/L (0.5-2.2) 04/03/23 15:22 Calcium 8.9 mg/dL (8.5-10.3) 04/03/23 15:22 Phosphorus 3.8 mg/dL (2.5-5.0) 04/03/23 15:22 Magnesium 1.6 mg/dL (1.7-2.3) L 04/03/23 15:22 Total Bilirubin 1.1 mg/dL (0.2-1.0) H 04/03/23 15:22 AST 21 IU/L (10-42) 04/03/23 15:22 ALT 13 IU/L (10-60) 04/03/23 15:22 Alkaline Phosphatase 58 IU/L (42-121) 04/03/23 15:22 Total Protein 6.8 g/dL (6.4-8.9) 04/03/23 15:22 Albumin 3.8 g/dL (3.2-5.5) 04/03/23 15:22 Globulin 3.0 g/dL (2.1-4.2) 04/03/23 15:22 Albumin/Globulin Ratio 1.3 (1.0-2.2) 04/03/23 15:22 Nasal Adenovirus (PCR) NOT DETECTED 04/03/23 15:18 Nasal B. parapertussis DNA (PCR) NOT DETECTED 04/03/23 15:18 Nasal Coronavir 229E PCR NOT DETECTED 04/03/23 15:18 Nasal Coronavir HKU1 PCR NOT DETECTED 04/03/23 15:18 Nasal Coronavir NL63 PCR NOT DETECTED 04/03/23 15:18 Nasal Coronavir OC43 PCR NOT DETECTED 04/03/23 15:18 Nasal Enterovir/Rhinovir PCR NOT DETECTED 04/03/23 15:18 Nasal Influenza B PCR NOT DETECTED 04/03/23 15:18 Nasal Influenza A PCR NOT DETECTED 04/03/23 15:18 Nasal Parainfluen 1 PCR NOT DETECTED 04/03/23 15:18 Nasal Parainfluen 2 PCR NOT DETECTED 04/03/23 15:18 Nasal Parainfluen 3 PCR NOT DETECTED 04/03/23 15:18 Nasal Parainfluen 4 PCR NOT DETECTED 04/03/23 15:18 Nasal RSV (PCR) NOT DETECTED 04/03/23 15:18 Nasal B.pertussis DNA PCR NOT DETECTED 04/03/23 15:18 Nasal C.pneumoniae (PCR) NOT DETECTED 04/03/23 15:18 Shiv Human Metapneumo PCR NOT DETECTED 04/03/23 15:18 Nasal M.pneumoniae (PCR) NOT DETECTED 04/03/23 15:18 Nasal SARS-CoV-2 (PCR) NOT DETECTED 04/03/23 15:18 Sepsis Event Note (H) - Evaluation Current Stage of Sepsis: Ruled out ABX Reporting Has patient been on IV antibiotics over the past 48 hours?: Yes Current Medications - Current Medications Current Medications: Current Medications Generic Name Dose Route Start Last Admin Trade Name Freq PRN Reason Stop Dose Admin Guaifenesin 10 ml 04/04/23 12:12 04/04/23 12:25 Guaifenesin/Dextromethorphan 10 Ml Udc PO 10 ml Q6HR PRN Administration Cough Sodium Chloride 1,000 mls @ 100 mls/hr 04/03/23 21:00 04/04/23 12:15 Normal Saline 0.9% IV 100 mls/hr .Q10H KENYA Administration Methylprednisolone Sodium 250 mls @ 250 mls/hr 04/03/23 21:00 04/04/23 10:14 Succinate 1,000 mg/ Sodium IV 04/06/23 06:00 Infused Chloride DAILY KENYA Infusion Sodium Chloride 10 ml 04/04/23 01:00 04/04/23 08:47 Sodium Chloride Flush 0.9% 10 Ml Syringe IVP Not Given 0100,0900,1700 KENYA
[2023-04-04] MEDS: BENZONATATE 100 MG CAPSULE PO PRN ×2 (14:19→17:42)
[2023-04-04] MEDS ORDERED: MORPHINE 10 MG/ML VIAL IVP ONE (18:36)
[2023-04-04] MEDS: IPRATROPIUM/ALBUTEROL 3 ML NEB INH PRN (18:42)
[2023-04-04] MEDS ORDERED: MORPHINE 2 MG/ML CARPUJECT ONE (18:45)
--- NOTE | 2023-04-04 19:00 | PROVIDER PROGRESS NOTE ---
Progress Note Patient had a coughing spell which caused his oxygen saturations to drop quite precipitously initially into the 60% range. He has been given a nebulizer breathing treatment, and a nonrebreather mask and he has responded fairly well with oxygen saturations increasing up to the 90s. In addition, where he had been tachypneic with respiratory rates in the mid 30s, he appears to be slightly more comfortable with respiratory rates in the 20s. However, in an effort to avoid any confusion should clinical decline occur overnight, I did revisit the discussion of intubation with Asad. It does appear at this time that he would like to proceed with intubation should things come to that, he is also agreed to trial BiPAP should that become necessary. Ultimately he said he would like to discuss things with his again regarding prolonged intubation, but for now, for the evening, if necessary, he is amenable to intubation. I also discussed with nursing staff and respiratory therapy that should the patient decline overnight, it would be more appropriate for this patient to be transferred to [facility] where he has the benefits of pulmonologists who know him well, and follow and manage his advanced interstitial lung disease. If he improves, he may be able to to recover here, but otherwise with further clinical decline, our capacity to provide standard of care may be somewhat limited As we are unable to offer bronchoscopy or other advanced treatment options. They voiced understanding and will pass the message on to the [facility] business analyst manager should this be necessary.
[2023-04-04] MEDS ORDERED: AZITHROMYCIN INJ 500 MG in SODIUM CHLORIDE 0.9% 250 ML IV ONE (21:00)
[2023-04-04] MEDS ORDERED: SODIUM CHLORIDE 0.9% 250 ML IV ONE (21:37)
[2023-04-05] MEDS: BENZONATATE 100 MG CAPSULE PO PRN (00:01)
[2023-04-05] MEDS: MORPHINE 2 MG/ML CARPUJECT IVP PRN ×6 (02:11→10:13)
[2023-04-05] MEDS: guaiFENesin/DEXTROMETHORPHAN 10 ML UDC PO PRN (05:16)
[2023-04-05] MEDS: IPRATROPIUM/ALBUTEROL 3 ML NEB INH PRN (05:55)
[2023-04-05] MEDS ORDERED: FUROSEMIDE 20 MG/2 ML VIAL IVP ONE ×2 (05:55→06:00)
[2023-04-05] MEDS ORDERED: LORazepam 2 MG/ML VIAL IVP SCH (06:01)
[2023-04-05 06:26] LABS: ABG BASE EXCESS -17.7 mmol/L (-2.0-3.0); ABG HCO3 12.6 mmol/L (22.0-26.0); ABG PCO2 49 mmHg (34-45); ABG PO2 61 mmHg (80-100); ABG TCO2 14.1 MMOL/L (21.0-29.0)
[2023-04-05 06:27] LABS: ABG MODE OF VENTILATION SYNCHRONOUS/TIMES; ABG RESPIRATORY RATE 18 b/min; ALLEN TEST POSITIVE
[2023-04-05 06:29] LABS: ABG OXYGEN SATURATION 74 % (94-98); ABG PH 7.03 (7.35-7.45)
[2023-04-05 06:39] LABS: HCT - HEMATOCRIT 32.8 % (42.0-52.0); HGB - HEMOGLOBIN 10.6 g/dL (14.0-18.0); MEAN CORPUSCULAR HGB CONC 32.3 g/dL (32.0-36.0); MEAN CORPUSCULAR VOLUME 95.9 fL (80.0-94.0); MEAN PLATELET VOLUME 12.8 fL (7.4-11.4); RED BLOOD COUNT 3.42 10^6/uL (4.70-6.10); RED CELL DISTRIBUTION WIDTH 16.6 % (12.0-15.0); WHITE BLOOD COUNT 20.4 x10^3/uL (4.8-10.8)
[2023-04-05] MEDS ORDERED: MIDAZOLAM 2 MG/2 ML VIAL IVP ONE (06:40)
[2023-04-05] MEDS ORDERED: SUCCINYLCHOLINE 200 MG/10 ML VIAL IVP ONE (06:40)
[2023-04-05] MEDS ORDERED: PROPOFOL 1000 MG/100 ML 1,000 MG/100 ML BOTTLE IV SCH (06:40)
[2023-04-05] MEDS ORDERED: PROPOFOL 200 MG/20 ML VIAL IVP ONE (06:41)
[2023-04-05] MEDS ORDERED: MIDAZOLAM 2 MG/2 ML VIAL ONE (06:41)
[2023-04-05] MEDS ORDERED: PROPOFOL 200 MG/20 ML VIAL IVP STA (06:41)
[2023-04-05] MEDS ORDERED: SUCCINYLCHOLINE 200 MG/10 ML VIAL ONE (06:42)
[2023-04-05] MEDS ORDERED: ROCURONIUM 50 MG/5 ML VIAL ONE (06:42)
[2023-04-05] MEDS ORDERED: KETAMINE 500 MG/10 ML VIAL ONE (06:42)
[2023-04-05] MEDS ORDERED: ETOMIDATE 40 MG/20 ML VIAL IVP ONE (06:42)
[2023-04-05] MEDS ORDERED: PROPOFOL 1000 MG/100 ML 1,000 MG/100 ML BOTTLE IV ONE (06:42)
[2023-04-05 06:52] LABS: CALCIUM 8.3 mg/dL (8.5-10.3); POTASSIUM 3.8 mmol/L (3.5-4.5)
[2023-04-05] MEDS ORDERED: PANTOPRAZOLE 40 MG TABLET PO SCH (07:00)
[2023-04-05] MEDS ORDERED: SODIUM CHLORIDE INHALATION 3 ML NEB ONE (07:31)
--- NOTE | 2023-04-05 07:45 | XRAY Report ---
PROCEDURE: Chest for Line Placement INDICATIONS: intubation TECHNIQUE: One view of the chest was acquired. COMPARISON: None. FINDINGS: Surgical changes and devices: Endotracheal tube terminates approximately 4.7 cm above the guy. Na sogastric tube courses below the diaphragm with tip in the gastric fundus. Lungs and pleura: Diffuse bilateral lung disease. No pleural effusions or pneumothorax. Mediastinum: Mediastinal contours appear normal. Heart size is normal. Bones and chest wall: No suspicious bony lesions. Overlying soft tissues appear unremarkable. IMPRESSION: Endotracheal and nasogastric tubes are in appropriate position. Reviewed by: Amalia Robles MD on 04/05/2023 7:43 AM PDT Approved by: Amalia Robles MD on 04/05/2023 7:43 AM PDT Station ID: [id number]
[2023-04-05] MEDS ORDERED: NOREPINEPHRINE/D5W 8 MG/250 ML BAG IV SCH (08:00)
[2023-04-05] MEDS ORDERED: MAGNESIUM OXIDE 400 MG TABLET PO SCH (08:00)
[2023-04-05] MEDS ORDERED: SODIUM CHLORIDE 0.9% 500 ML IV ONE (08:04)
[2023-04-05] MEDS: SODIUM CHLORIDE 0.9% 1,000 ML IV SCH (08:13)
[2023-04-05 08:27] LABS: ABG BASE EXCESS -11.8 mmol/L (-2.0-3.0); ABG HCO3 16.4 mmol/L (22.0-26.0); ABG MODE OF VENTILATION ASSIST/CONTROL; ABG PCO2 46 mmHg (34-45); ABG PO2 58 mmHg (80-100); ABG RESPIRATORY RATE 16 b/min; ABG TCO2 17.8 MMOL/L (21.0-29.0); ALLEN TEST POSITIVE
[2023-04-05 08:28] LABS: ABG OXYGEN SATURATION 79 % (94-98); ABG PH 7.17 (7.35-7.45)
[2023-04-05] MEDS ORDERED: PIPERACILLIN/TAZOBACTAM 3.375 GM in SODIUM CHLORIDE 0.9% MINIBAG 100 ML IV ONE (08:30)
[2023-04-05] MEDS ORDERED: fentaNYL 100 MCG/2 ML VIAL IVP ONE (09:00)
[2023-04-05] MEDS ORDERED: fentaNYL 2,500 MCG in SODIUM CHLORIDE 0.9% 200 ML IV SCH (09:00)
[2023-04-05] MEDS: SODIUM CHLORIDE FLUSH 0.9% 10 ML SYRINGE IVP SCH (09:09)
--- NOTE | 2023-04-05 09:14 | ED Physician Documentation ---
ED Addendum - Addendum Addendum: 04/05/23 09:08 I was asked to evaluate this admitted patient for worsening hypoxia despite bipap and ABG result this morning of 7.0/49/61/12.6 and ABG pulse ox of 74%. On my evaluation he is on bipap, somnolent and tachypneic with pulse ox of 70s-80s. He is given 2mg IV versed, 20mg IVP propofol followed by 200mg IV succinylcholine, intubated with 7.5mm ETT using S3 glidescope. He desaturated to mid/lower 50s during procedure, gradually improving to 91% after ETT placed and placed on ventilator. Procedures - Intubation Time of Intubation: 06:40 INTUBATION - Intubation Provider: positive: Emergency physician Medications: positive: Versed, Propofol, Succinylcholine Blade: positive: Glidescope Tube: positive: Size-enter number (7.5), Marked at lips-enter cm (25) Route: positive: Oral Confirmation: positive: Direct visualization (via S3 glidescope), Bilateral breath sounds, Chest xray Complications: positive: Desaturated
[2023-04-05] MEDS ORDERED: fentaNYL 100 MCG/2 ML VIAL IVP PRN (09:47)
[2023-04-05 10:28] VITALS: BP 125/115; O2SAT 35
--- NOTE | 2023-04-05 12:10 | DISCHARGE SUMMARY ---
Discharge Summary Admit Date: 04/03/23 Discharge Date: 04/05/23 Discharging Provider: Dr. Kervin Acevedo Primary Care Provider: Seymour Goldberg Code Status: Do Not Attempt Resuscitation Discharge Disposition: 20 - DIAGNOSES Admission Diagnoses: Acute on chronic respiratory failure with hypoxia Interstitial lung disease COPD with acute bronchitis Discharge Diagnoses with Status of Each Condition: Discharge diagnoses with condition critical prior to patient's : Acute respiratory failure with hypoxia Respiratory arrest requiring intubation Interstitial lung disease - HPI History of Present Illness: 82-year-old gentleman with "pulmonary calcifications" for which he sees a curtain stretcher assembler at [facility]. Over the last few weeks he is slowly been getting worse with breathing with a productive cough with yellow-green sputum and worsening shortness of breath with increased oxygen requirement with his oxygen going from 4 up to 5, up to 6 L. He has been seen a couple times the [place] and he has had 2 rounds of Augmentin and prednisone, the first starting on the eighth of this month and the second starting 4 days ago. Despite this he continues to worsen. He denies fevers. No pedal edema or calf pain. No chest pain or heart problems. EMS notes his pulse oximetry while walking at home was 75% on his 6 L. From EMS prior to arrival he received a DuoNeb which did not do anything to help him he thinks, and 125 mg of IV Solu-Medrol. Pateint discussed with Dr Gomez, patient may need high dose steroids and may need bronch so asked him to speak with his primary pulmonary, who reviewed images and felt patient is ok to be admitted at [place] and recommneded abx and high dose siolumedrol x 3 days Patient is retired lives with is a full code Used to work in [place] - CONSULTS | PROCEDURES Consultations: Dr. Vora, ED attending, for intubation Procedures: Intubation, mechanical ventilation - HOSPITAL COURSE Hospital Course: Mr. Patricia was admitted on oxygen support varying between 6 to 8 L, at times high flow oxygen, and at times nonrebreather. Overall on the evening after his admission he did fairly well with no significant clinical events. Throughout the day he had varying levels of respiratory status, waxing and waning with regards to his oxygen requirement at times dependent upon coughing spells. He was started on cough medications, started on 1 g of Solu-Medrol IV, as well as empiric antibiotics with azithromycin and ceftriaxone. Throughout most of the day he was doing fairly well however at around 6:30 in th e evening after significant coughing his oxygen saturation precipitously dropped into the 60% range prompting respiratory therapy to place him on a nonrebreather and then high flow oxygen which he initially recovered with relatively well. Given this change of events, I had a conversation with the patient regarding his goals of care, and in particular explaining to him my concern that he may deter iorate overnight and eventually required BiPAP and if that does not succeed, would be needing mechanical ventilation with intubation in order to sustain his oxygen level. After explaining this to the patient and answering his questions, he reluctantly agreed to intubation with some hesitation as he does not want prolonged life support. Later in the evening, during the management expert when sales agent fire insurance support is provided by [facility], he apparently deteriorated at around 6:30 in the morning. He was a pparently found to have very low oxygen saturations and appeared cyanotic prompting immediate placement of BiPAP which after only 10 minutes became evident was not sufficient and an emergent intubation was performed by the ED attending. After intubation, with propofol sedation, blood pressure dropped significantly with MAP in the 40-50 range so Levophed was initiated. His oxygen initially was low after intubation but eventually normalized with adjustment of vent settings. Given this significant decline in his clinical status, I attempted transfer to [facility] where his pulmonology care is provided and where he could be closely followed by the pulmonology service in the medical ICU. After contacting the transfer center, I was able to discuss with his curtain stretcher assembler Dr. Fletcher, who was kind enough to review the patient's case and provide recommendations and also agreed with transfer. Transfer center was then able to contacted Dr. Kwon, MICU attending who also tentatively agreed to transfer pending patient's stability. I contacted anesthesia,Cintia Ceballos CRNA - Who kindly arrived to provide a central line and arterial line.However, at this time, the patient's also arrived. She was briefed on the patient's current status as well as the progression from last night to the next morning. After explaining to her in detail about her 's current condition, his poor prognosis, requirement for vasopressor support, maximum ventilator settings with still suboptimal oxygen saturation, and the process regarding transfer to [facility], she then decided this would not be in line with the patient's wishes and instead decided to transition the patient to comfort care. At this point, after again explaining everything thoroughly and ensuring clarification, as well as explaining the options on how to proceed, with shared decision making with th e patient's we elected for compassionate extubation. After gathering the team, and ensuring that the necessary palliative medications including fentanyl, and morphine,Were available at the bedside, vasopressor was discontinued, ventilator was turned off, and the patient gradually peace fully with his family at the bedside. Time of is 10:39 AM. - ALLERGIES Allergies/Adverse Reactions: Allergies Allergy/AdvReac Type Severity Reaction Status Date / Time No Known Drug Allergies Allergy Verified 04/03/23 15:09 - MEDICATIONS Home Medications: Ambulatory Orders Medication Instructions Recorded Confirmed Fluticasone [Flonase] 2 sprays LINDA BID 04/04/23 04/04/23 Losartan [Cozaar] 50 mg PO DAILY 04/04/23 04/04/23 Omeprazole 20 mg PO DAILY 04/04/23 04/04/23 Sod Chlor,Sod Bicarb/Neti Pot 1 packet DAILY 04/04/23 04/04/23 [Sinus Wash Neti Pot Kit] - LABS Result Diagrams: 04/05/23 06:35 04/05/23 06:35 - SEPSIS Current Stage of Sepsis: Ruled out - TIME SPENT Time Spent in Discharge (Minutes): 90
[2023-04-05] MEDS ORDERED: AZITHROMYCIN INJ 500 MG in SODIUM CHLORIDE 0.9% 250 ML IV SCH (21:00)
== END 2023-04-05 10:40 | disposition expired | DRG 208 ==
LOC: EDUNIT# → ED 14:55 → MS2 20:51 → ICU 04-05 06:15
PROVIDERS: ADMIT Internal Medicine; ATTEND Family Medicine Sports Medicine
PROC: 5A1935Z Respiratory Ventilation, Less than 24 Consecutive Hours (ICD-10-PCS; principal; 2023-04-05)
PROC: 0BH17EZ Insertion of Endotracheal Airway into Trachea, Via Natural or Artificial Opening (ICD-10-PCS; 2023-04-05)
DX: J96.20 Acute and chronic respiratory failure, unspecified whether with hypoxia or hypercapnia (principal); J96.21 Acute and chronic respiratory failure with hypoxia; E87.1 Hypo-osmolality and hyponatremia; J84.9 Interstitial pulmonary disease, unspecified; Z20.822 Contact with and (suspected) exposure to COVID-19; J44.0 Chronic obstructive pulmonary disease with (acute) lower respiratory infection; J20.9 Acute bronchitis, unspecified; I10 Essential (primary) hypertension; K21.9 Gastro-esophageal reflux disease without esophagitis; Z51.5 Encounter for palliative care; Z96.659 Presence of unspecified artificial knee joint
CPT/HCPCS: 31500; 36415; 36600; 71275; 80048; 80053; 82803; 83605; 83735; 84100; 84484; 85025; 85027; 87040; 87070; 87077; 87150; 87181; 87205; 87633; 93005; 94002; 94640; 94660; 96365; 96375; 99285; A9270; J0330; J2060; J3010; Q9967; 87640; 94770